=== PATIENT | male | born 1955 | race Caucasian/White ===

== ENCOUNTER 2022-01-16 17:28 | Inpatient (IN) | payer MEDICARE, MEDICAID ==
[~2022-01-16] VITALS: Ht 167.6 cm; Wt 63.0 kg
[2022-01-16 21:20] LABS: BASOPHILS % 0.4 % (0.0-2.0); HEMATOCRIT. 21.5 % (42.0-52.0); HEMOGLOBIN. 7.3 g/dL (14.0-18.0); LYMPHOCYTES % 22.5 % (20.0-50.0); MEAN CORPUSCULAR VOLUME 73.4 fL (80.0-94.0); MEAN PLATELET VOLUME 6.4 fl (7.4-10.4); MONOCYTES % 6.5 % (2.0-8.0); NEUTROPHILS % 64.6 % (40.0-76.0); PLATELET 308 x1000/uL (130-400); RED BLOOD CELL COUNT 2.92 mill/uL (4.7-6.1)
[2022-01-16 21:28] LABS: CHLORIDE 103 mEq/L (98-107)
[2022-01-16 21:37] LABS: ETHANOL BLOOD < 10 mg/dL
[2022-01-16 21:42] LABS: CREATINE KINASE 19 IU/L (39-308)
[2022-01-16] MEDS ORDERED: VANCOMYCIN 1G PREMIX 200 ML IV SCH (21:45)
[2022-01-16] MEDS ORDERED: PIPERACILLIN/TAZOBACTAM 3.375GM/50ML PREMIX IV ONE (21:45)
[2022-01-16] MEDS ORDERED: PIPERACILLIN/TAZ 3.375G PREMIX 50 ML IV NR (21:47)
[2022-01-17] MEDS ORDERED: ONDANSETRON HCL 4MG/2ML INJ IV PRN
[2022-01-17] MEDS ORDERED: ACETAMINOPHEN 325MG TABLET PO PRN
[2022-01-17] MEDS ORDERED: HYDROCODONE/ACETAMINOPHEN 5/325MG TABLET PO PRN
[2022-01-17] MEDS ORDERED: MAGNESIUM/ALUMINUM HYDROXIDE/SIMETHICONE 30ML UDC PO PRN
[2022-01-17] MEDS ORDERED: GUAIFENESIN 200MG/10ML SUGAR FREE UDC PO PRN
[2022-01-17] MEDS ORDERED: NALOXONE HCL 0.4 MG/ML 1ML VIAL IV PRN (00:15)
[2022-01-17] MEDS ORDERED: VANCOMYCIN 1G PREMIX 200 ML IV SCH (01:00)
[2022-01-17] MEDS ORDERED: VANCOMYCIN 1GM PMX (XELLIA) 200 ML IV SCH (01:00)
[2022-01-17] MEDS ORDERED: CEFEPIME 1,000 MG in DEXTROSE 5% WATER 50 ML IV SCH (02:00)
[2022-01-17 02:30] VITALS: BP 103/70
[2022-01-17] MEDS ORDERED: FERR325T6 MT (05:35)
[2022-01-17] MEDS ORDERED: OMEP20CA14 MT (05:35)
[2022-01-17] MEDS ORDERED: ASPI-1497 MT (05:35)
[2022-01-17] MEDS ORDERED: ATOR40TA70 MT (05:35)
[2022-01-17] MEDS ORDERED: GABA-532 PO (05:35)
[2022-01-17] MEDS ORDERED: FLUD0.1T MT (05:35)
[2022-01-17 06:48] LABS: CANNABINOID URINE SCREEN NEGATIVE (NEGATIVE); OPIATES URINE SCREEN NEGATIVE (NEGATIVE)
[2022-01-17 06:49] LABS: *AMPHETAMINES SCREEN URINE NEGATIVE (NEGATIVE); *BARBITURATES SCREEN URINE NEGATIVE (NEGATIVE); *COCAINE SCREEN URINE NEGATIVE (NEGATIVE); PHENCYCLIDINE URINE SCREEN NEGATIVE (NEGATIVE)
[2022-01-17 06:52] LABS: *BENZODIAZEPINES SCREEN URINE NEGATIVE (NEGATIVE)
[2022-01-17 06:53] LABS: METHADONE URINE SCREEN NEGATIVE (NEGATIVE)
[2022-01-17 06:54] LABS: CLARITY URINE CLEAR (CLEAR); COLOR URINE YELLOW (YELLOW); KETONES URINE NEGATIVE (NEGATIVE); LEUKOCYTE ESTERASE URINE NEGATIVE (NEGATIVE); NITRITE URINE NEGATIVE (NEGATIVE); OCCULT BLOOD URINE TRACE (NEGATIVE); PH URINE 6.5 (4.5-8.0); PROTEIN URINE 2+ (NEGATIVE); UROBILINOGEN URINE 0.2 E.U./dL (0.2-1.0)
[2022-01-17 08:00] VITALS: BP 154/67
[2022-01-17] MEDS ORDERED: VANCOMYCIN 750MG PMX (XELLIA) 150 ML IV SCH (09:00)
[2022-01-17] MEDS ORDERED: POTASSIUM CHLORIDE 20MEQ TABLET SR PO NR (09:30)
[2022-01-17] MEDS: ENOXAPARIN 40MG/0.4ML SYR SUBCUT SCH (09:45)
[2022-01-17] MEDS: VANCOMYCIN 750MG PMX (XELLIA) 150 ML IV SCH ×2 (09:45→21:34)
[2022-01-17 10:56] LABS: BASOPHILS % 0.4 % (0.0-2.0); EOSINOPHILS % 9.6 % (0.0-5.0); LYMPHOCYTES % 17.8 % (20.0-50.0); MEAN CORPUSCULAR HEMOGLOBIN 24.5 pg (28.0-32.0); MEAN CORPUSCULAR VOLUME 73.2 fL (80.0-94.0); MEAN PLATELET VOLUME 6.5 fl (7.4-10.4); MONOCYTES % 6.4 % (2.0-8.0); NEUTROPHILS % 65.8 % (40.0-76.0); PLATELET 321 x1000/uL (130-400); RED BLOOD CELL COUNT 3.51 mill/uL (4.7-6.1); RED CELL DISTRIBUTION WIDTH 16.8 % (11.6-14.6)
[2022-01-17 11:00] LABS: CHLORIDE 102 mEq/L (98-107)
[2022-01-17 11:05] LABS: HEMATOCRIT. 25.7 % (42.0-52.0); HEMOGLOBIN. 8.6 g/dL (14.0-18.0); PHOSPHORUS 3.7 mg/dL (2.5-4.9)
[2022-01-17 12:00] VITALS: BP 168/81
[2022-01-17] MEDS: ASPIRIN 81MG EC TABLET PO SCH (15:42)
[2022-01-17] MEDS: CEFEPIME 1,000 MG in DEXTROSE 5% WATER 50 ML IV SCH (15:42)
[2022-01-17] MEDS: FERROUS SULFATE 325MG TABLET PO SCH (15:43)
[2022-01-17] MEDS: OMEPRAZOLE 20MG CAPSULE EXTENDED RELEASE PO SCH (15:43)
[2022-01-17 16:00] VITALS: BP 140/63
[2022-01-17] MEDS: GABAPENTIN 300MG CAPSULE PO SCH (17:23)
[2022-01-17] MEDS: FLUDROCORTISONE ACETATE 0.1MG TABLET PO SCH (17:23)
[2022-01-17 20:00] VITALS: BP 121/54
[2022-01-17] MEDS: ACETAMINOPHEN 325MG TABLET PO PRN (21:35)
[2022-01-17] MEDS: ATORVASTATIN CALCIUM 40MG TABLET PO SCH (21:36)
[2022-01-17] MEDS ORDERED: DEXTROSE 50% WATER 50ML SYRINGE IV PRN (21:45)
[2022-01-18] VITALS: BP 119/57
[2022-01-18 04:00] VITALS: BP 138/64
[2022-01-18] MEDS: CEFEPIME 1,000 MG in DEXTROSE 5% WATER 50 ML IV SCH ×2 (04:11→15:39)
[2022-01-18 05:44] LABS: HEMOGLOBIN. 7.6 g/dL (14.0-18.0)
[2022-01-18 05:45] LABS: MEAN CORPUSCULAR HEMOGLOBIN 24.7 pg (28.0-32.0)
[2022-01-18 05:48] LABS: HEMATOCRIT. 22.5 % (42.0-52.0); MEAN CORPUSCULAR VOLUME 72.8 fL (80.0-94.0); MEAN PLATELET VOLUME 6.6 fl (7.4-10.4); PLATELET 299 x1000/uL (130-400); RED CELL DISTRIBUTION WIDTH 16.9 % (11.6-14.6)
[2022-01-18 05:57] LABS: CHLORIDE 108 mEq/L (98-107)
[2022-01-18] MEDS: OMEPRAZOLE 20MG CAPSULE EXTENDED RELEASE PO SCH (06:17)
[2022-01-18] MEDS: INSULIN LISPRO 100 UNITS/ML SUBCUT SCH ×4 (06:39→20:44)
[2022-01-18] MEDS: BLOOD SUGAR DIAGNOSTIC STRIP TEST SCH ×4 (06:39→20:44)
[2022-01-18 08:00] VITALS: BP 131/65
[2022-01-18] MEDS: GABAPENTIN 300MG CAPSULE PO SCH ×3 (10:23→18:43)
[2022-01-18] MEDS: FLUDROCORTISONE ACETATE 0.1MG TABLET PO SCH ×2 (10:23→18:43)
[2022-01-18] MEDS: ASPIRIN 81MG EC TABLET PO SCH (10:23)
[2022-01-18] MEDS: VANCOMYCIN 750MG PMX (XELLIA) 150 ML IV SCH (10:23)
[2022-01-18] MEDS: ENOXAPARIN 40MG/0.4ML SYR SUBCUT SCH (10:24)
[2022-01-18 12:00] VITALS: BP 132/67
[2022-01-18 13:59] LABS: PLATELET ESTIMATE NORMAL
[2022-01-18 16:00] VITALS: BP 138/69
[2022-01-18 20:00] VITALS: BP 152/107
[2022-01-18] MEDS: ATORVASTATIN CALCIUM 40MG TABLET PO SCH (20:44)
[2022-01-19] VITALS: BP 150/66
[2022-01-19] MEDS: VANCOMYCIN 1,000 MG in DEXT 5% WATER 250 ML IV SCH ×2 (00:36→18:32)
[2022-01-19 04:00] VITALS: BP 124/53
[2022-01-19] MEDS: CEFEPIME 1,000 MG in DEXTROSE 5% WATER 50 ML IV SCH ×2 (05:39→18:32)
[2022-01-19] MEDS: OMEPRAZOLE 20MG CAPSULE EXTENDED RELEASE PO SCH (05:39)
[2022-01-19] MEDS: BLOOD SUGAR DIAGNOSTIC STRIP TEST SCH ×4 (06:03→21:06)
[2022-01-19] MEDS: INSULIN LISPRO 100 UNITS/ML SUBCUT SCH ×4 (06:03→21:12)
[2022-01-19 06:28] LABS: HEMATOCRIT. 21.8 % (42.0-52.0); HEMOGLOBIN. 7.5 g/dL (14.0-18.0); MEAN CORPUSCULAR HEMOGLOBIN 25.1 pg (28.0-32.0); MEAN CORPUSCULAR VOLUME 72.6 fL (80.0-94.0); MEAN PLATELET VOLUME 6.6 fl (7.4-10.4); PLATELET 304 x1000/uL (130-400); RED CELL DISTRIBUTION WIDTH 17.1 % (11.6-14.6)
[2022-01-19 06:45] LABS: CHLORIDE 108 mEq/L (98-107)
[2022-01-19 08:00] VITALS: BP 122/55
[2022-01-19] MEDS ORDERED: POTASSIUM CHLORIDE 20MEQ TABLET SR PO NR (08:00)
[2022-01-19] MEDS: ASPIRIN 81MG EC TABLET PO SCH (08:50)
[2022-01-19] MEDS: FLUDROCORTISONE ACETATE 0.1MG TABLET PO SCH ×2 (08:50→18:32)
[2022-01-19] MEDS: ENOXAPARIN 40MG/0.4ML SYR SUBCUT SCH (08:50)
[2022-01-19] MEDS: GABAPENTIN 300MG CAPSULE PO SCH ×3 (08:51→18:33)
[2022-01-19 12:00] VITALS: BP 144/60
[2022-01-19 16:00] VITALS: BP 130/54
[2022-01-19 16:50] LABS: PLATELET ESTIMATE NORMAL
[2022-01-19 19:43] VITALS: BP 146/55
[2022-01-19] MEDS: ATORVASTATIN CALCIUM 40MG TABLET PO SCH (21:09)
[2022-01-20 00:20] VITALS: BP 137/53
[2022-01-20 04:00] VITALS: BP 152/62
[2022-01-20] MEDS: CEFEPIME 1,000 MG in DEXTROSE 5% WATER 50 ML IV SCH ×2 (04:07→16:53)
[2022-01-20] MEDS: OMEPRAZOLE 20MG CAPSULE EXTENDED RELEASE PO SCH (06:16)
[2022-01-20] MEDS: BLOOD SUGAR DIAGNOSTIC STRIP TEST SCH ×4 (06:24→21:44)
[2022-01-20 06:25] LABS: HEMATOCRIT. 25.9 % (42.0-52.0); HEMOGLOBIN. 8.6 g/dL (14.0-18.0); MEAN CORPUSCULAR HEMOGLOBIN 24.4 pg (28.0-32.0); MEAN CORPUSCULAR VOLUME 73.1 fL (80.0-94.0); MEAN PLATELET VOLUME 6.5 fl (7.4-10.4); PLATELET 326 x1000/uL (130-400); RED BLOOD CELL COUNT 3.54 mill/uL (4.7-6.1); RED CELL DISTRIBUTION WIDTH 16.8 % (11.6-14.6)
[2022-01-20 07:19] LABS: CHLORIDE 109 mEq/L (98-107)
[2022-01-20 07:26] LABS: PHOSPHORUS 3.2 mg/dL (2.5-4.9)
[2022-01-20 08:00] VITALS: BP 109/64
[2022-01-20] MEDS: ENOXAPARIN 40MG/0.4ML SYR SUBCUT SCH (09:38)
[2022-01-20] MEDS: GABAPENTIN 300MG CAPSULE PO SCH ×3 (09:38→16:54)
[2022-01-20] MEDS: FLUDROCORTISONE ACETATE 0.1MG TABLET PO SCH ×2 (09:38→16:54)
[2022-01-20] MEDS: ASPIRIN 81MG EC TABLET PO SCH (09:38)
[2022-01-20] MEDS: FERROUS SULFATE 325MG TABLET PO SCH (09:38)
[2022-01-20 12:00] VITALS: BP 128/55
[2022-01-20] MEDS: VANCOMYCIN 1,000 MG in DEXT 5% WATER 250 ML IV SCH (12:40)
[2022-01-20] MEDS: INSULIN LISPRO 100 UNITS/ML SUBCUT SCH ×3 (12:42→21:00)
[2022-01-20 16:00] VITALS: BP 125/59
[2022-01-20 18:44] LABS: PLATELET ESTIMATE NORMAL
[2022-01-20 20:00] VITALS: BP 132/59
[2022-01-20] MEDS: ATORVASTATIN CALCIUM 40MG TABLET PO SCH (21:42)
[2022-01-21] VITALS: BP 155/73
[2022-01-21 04:00] VITALS: BP 154/64
[2022-01-21] MEDS: CEFEPIME 1,000 MG in DEXTROSE 5% WATER 50 ML IV SCH ×2 (04:14→15:38)
[2022-01-21] MEDS: BLOOD SUGAR DIAGNOSTIC STRIP TEST SCH ×4 (06:29→21:52)
[2022-01-21] MEDS: VANCOMYCIN 1,000 MG in DEXT 5% WATER 250 ML IV SCH (06:34)
[2022-01-21 07:36] LABS: CHLORIDE 111 mEq/L (98-107)
[2022-01-21] MEDS: INSULIN LISPRO 100 UNITS/ML SUBCUT SCH ×4 (07:46→21:55)
[2022-01-21 07:53] LABS: VANCOMYCIN TROUGH 19.2 ug/mL (5.0-10.0)
[2022-01-21 08:00] VITALS: BP 132/51
[2022-01-21] MEDS: FAMOTIDINE 20MG TABLET PO SCH ×2 (08:45→21:52)
[2022-01-21] MEDS: ENOXAPARIN 40MG/0.4ML SYR SUBCUT SCH (08:45)
[2022-01-21] MEDS: FLUDROCORTISONE ACETATE 0.1MG TABLET PO SCH ×2 (08:45→17:12)
[2022-01-21] MEDS: GABAPENTIN 300MG CAPSULE PO SCH ×3 (08:45→17:12)
[2022-01-21] MEDS: ASPIRIN 81MG EC TABLET PO SCH (08:45)
[2022-01-21] MEDS ORDERED: POTASSIUM CHLORIDE 20MEQ TABLET SR PO SCH (08:45)
[2022-01-21 12:00] VITALS: BP 144/56
[2022-01-21 16:00] VITALS: BP 141/59
[2022-01-21 20:00] VITALS: BP 155/44
[2022-01-21] MEDS: ATORVASTATIN CALCIUM 40MG TABLET PO SCH (21:52)
[2022-01-22] VITALS: BP 140/56
[2022-01-22 04:00] VITALS: BP 170/65
[2022-01-22] MEDS: CEFEPIME 1,000 MG in DEXTROSE 5% WATER 50 ML IV SCH ×2 (05:05→18:16)
[2022-01-22] MEDS: BLOOD SUGAR DIAGNOSTIC STRIP TEST SCH ×4 (05:12→21:16)
[2022-01-22] MEDS: CLONIDINE 0.1MG TABLET PO PRN (05:14)
[2022-01-22] MEDS: VANCOMYCIN 1,000 MG in DEXT 5% WATER 250 ML IV SCH (06:21)
[2022-01-22] MEDS: VANCOMYCIN 1GM PMX (XELLIA) 200 ML IV SCH (06:22)
[2022-01-22] MEDS: INSULIN LISPRO 100 UNITS/ML SUBCUT SCH ×4 (07:50→21:00)
[2022-01-22 08:20] VITALS: BP 126/52
[2022-01-22] MEDS: FERROUS SULFATE 325MG TABLET PO SCH (09:00)
[2022-01-22] MEDS: ASPIRIN 81MG EC TABLET PO SCH (09:00)
[2022-01-22] MEDS: ENOXAPARIN 40MG/0.4ML SYR SUBCUT SCH (09:00)
[2022-01-22 10:47] LABS: HEMATOCRIT. 27.1 % (42.0-52.0); MEAN CORPUSCULAR HEMOGLOBIN 24.8 pg (28.0-32.0); MEAN CORPUSCULAR VOLUME 74.6 fL (80.0-94.0); MEAN PLATELET VOLUME 6.3 fl (7.4-10.4); PLATELET 349 x1000/uL (130-400); RED BLOOD CELL COUNT 3.63 mill/uL (4.7-6.1); RED CELL DISTRIBUTION WIDTH 16.5 % (11.6-14.6)
[2022-01-22 10:54] LABS: CHLORIDE 108 mEq/L (98-107)
[2022-01-22 11:01] LABS: INR 1.1; PARTIAL THROMBOPLASTIN TIME 30.5 sec (23.4-31.0)
[2022-01-22 11:20] LABS: PLATELET ESTIMATE NORMAL
[2022-01-22] MEDS: FAMOTIDINE 20MG TABLET PO SCH ×2 (11:44→22:37)
[2022-01-22] MEDS: GABAPENTIN 300MG CAPSULE PO SCH ×3 (11:44→18:15)
[2022-01-22] MEDS: FLUDROCORTISONE ACETATE 0.1MG TABLET PO SCH ×2 (11:45→18:15)
[2022-01-22 12:00] VITALS: BP 141/51
[2022-01-22] MEDS ORDERED: EPINEPHRINE 1:1000 1 MG/ML AMP ONE (13:09)
[2022-01-22] MEDS ORDERED: LIDOCAINE HCL/EPINEPHRINE 1%-EPI 1:100,000 50 ML VIAL INFIL ONE (13:10)
[2022-01-22] MEDS ORDERED: VANCOMYCIN HCL 1 GM/VIAL ONE (13:10)
[2022-01-22] MEDS ORDERED: POLYMYXIN B SULFATE 500000 UNITS/VIAL ONE (13:10)
[2022-01-22] MEDS ORDERED: PROPOFOL 200MG/20ML VIAL IV ONE (14:24)
[2022-01-22] MEDS ORDERED: MIDAZOLAM HCL 2 MG/2 ML VIAL ONE (14:24)
[2022-01-22] MEDS ORDERED: FENTANYL CITRATE/PF 50MCG/ML 2ML VIAL ONE (14:24)
[2022-01-22] MEDS ORDERED: HYDROMORPHONE HCL/PF 2MG/ML CPJ IV PRN (14:30)
[2022-01-22] MEDS ORDERED: ONDANSETRON HCL 4MG/2ML INJ IV PRN (14:30)
[2022-01-22] MEDS ORDERED: MEPERIDINE HCL/PF 25MG/ML CPJ IV PRN (14:30)
[2022-01-22] MEDS ORDERED: LABETALOL 5MG/ML SYR 20 MG/4 ML SYRINGE IV PRN (14:30)
[2022-01-22] MEDS ORDERED: ONDANSETRON HCL 4MG/2ML INJ ONE (14:31)
[2022-01-22] MEDS ORDERED: DEXAMETHASONE 4MG/ML 1ML VIAL ONE (14:31)
[2022-01-22] MEDS ORDERED: SODIUM CHLORIDE 0.9% 10ML VIAL ONE (14:44)
[2022-01-22] MEDS ORDERED: EPHEDRINE SULFATE 50MG/ML VIAL ONE (14:44)
[2022-01-22] MEDS ORDERED: FENTANYL CITRATE/PF 50MCG/ML 2ML VIAL IV PRN (15:15)
[2022-01-22 16:50] VITALS: BP 119/85
[2022-01-22 20:00] VITALS: BP 112/52
[2022-01-22] MEDS: HYDROCODONE/ACETAMINOPHEN 5/325MG TABLET PO PRN (20:30)
[2022-01-22] MEDS: ATORVASTATIN CALCIUM 40MG TABLET PO SCH (22:37)
[2022-01-23] VITALS: BP 133/59
[2022-01-23] MEDS: HYDROCODONE/ACETAMINOPHEN 5/325MG TABLET PO PRN ×4 (00:39→18:05)
[2022-01-23] MEDS: CEFEPIME 1,000 MG in DEXTROSE 5% WATER 50 ML IV SCH ×2 (02:12→14:21)
[2022-01-23 04:00] VITALS: BP 140/56
[2022-01-23] MEDS: VANCOMYCIN 1GM PMX (XELLIA) 200 ML IV SCH (06:28)
[2022-01-23] MEDS: INSULIN LISPRO 100 UNITS/ML SUBCUT SCH ×4 (07:07→20:49)
[2022-01-23] MEDS: BLOOD SUGAR DIAGNOSTIC STRIP TEST SCH ×4 (07:07→20:49)
[2022-01-23 07:30] VITALS: BP 133/57
[2022-01-23] MEDS: GABAPENTIN 300MG CAPSULE PO SCH ×3 (10:37→17:30)
[2022-01-23] MEDS: ENOXAPARIN 40MG/0.4ML SYR SUBCUT SCH (10:37)
[2022-01-23] MEDS: FLUDROCORTISONE ACETATE 0.1MG TABLET PO SCH ×2 (10:37→17:30)
[2022-01-23] MEDS: FAMOTIDINE 20MG TABLET PO SCH ×2 (10:37→20:49)
[2022-01-23] MEDS: ASPIRIN 81MG EC TABLET PO SCH (10:38)
[2022-01-23 11:50] VITALS: BP 142/54
[2022-01-23] MEDS ORDERED: LEVO500T89 PO (12:58)
[2022-01-23 15:44] VITALS: BP 120/55
[2022-01-23 20:00] VITALS: BP 122/54
[2022-01-23] MEDS: ATORVASTATIN CALCIUM 40MG TABLET PO SCH (20:49)
[2022-01-23] MEDS: ACETAMINOPHEN 325MG TABLET PO PRN (20:49)
[2022-01-24] VITALS: BP 119/59
[2022-01-24] MEDS: HYDROCODONE/ACETAMINOPHEN 5/325MG TABLET PO PRN ×2 (00:59→21:29)
[2022-01-24] MEDS: CEFEPIME 1,000 MG in DEXTROSE 5% WATER 50 ML IV SCH ×2 (03:35→16:53)
[2022-01-24] MEDS: CLONIDINE 0.1MG TABLET PO PRN (03:39)
[2022-01-24 04:00] VITALS: BP 163/46
[2022-01-24 05:36] LABS: CHLORIDE 107 mEq/L (98-107); VANCOMYCIN TROUGH 17.2 ug/mL (5.0-10.0)
[2022-01-24] MEDS: VANCOMYCIN 1GM PMX (XELLIA) 200 ML IV SCH (05:43)
[2022-01-24 07:16] LABS: HEMATOCRIT. 24.8 % (42.0-52.0); MEAN CORPUSCULAR HEMOGLOBIN 24.1 pg (28.0-32.0); MEAN CORPUSCULAR VOLUME 74.4 fL (80.0-94.0); MEAN PLATELET VOLUME 6.5 fl (7.4-10.4); PLATELET 343 x1000/uL (130-400); RED BLOOD CELL COUNT 3.34 mill/uL (4.7-6.1); RED CELL DISTRIBUTION WIDTH 16.5 % (11.6-14.6)
[2022-01-24] MEDS: INSULIN LISPRO 100 UNITS/ML SUBCUT SCH ×4 (07:50→21:30)
[2022-01-24] MEDS: BLOOD SUGAR DIAGNOSTIC STRIP TEST SCH ×4 (07:56→20:31)
[2022-01-24 08:15] VITALS: BP 145/65
[2022-01-24] MEDS: FLUDROCORTISONE ACETATE 0.1MG TABLET PO SCH ×2 (08:17→17:26)
[2022-01-24] MEDS: FAMOTIDINE 20MG TABLET PO SCH ×2 (08:17→21:28)
[2022-01-24] MEDS: FERROUS SULFATE 325MG TABLET PO SCH (08:17)
[2022-01-24] MEDS: GABAPENTIN 300MG CAPSULE PO SCH ×3 (08:17→17:26)
[2022-01-24] MEDS: ENOXAPARIN 40MG/0.4ML SYR SUBCUT SCH (08:17)
[2022-01-24] MEDS: ASPIRIN 81MG EC TABLET PO SCH (08:17)
[2022-01-24 12:00] VITALS: BP 154/67
[2022-01-24 14:36] LABS: PLATELET ESTIMATE NORMAL
[2022-01-24 16:00] VITALS: BP 147/69
[2022-01-24 20:00] VITALS: BP 145/64
[2022-01-24] MEDS: ATORVASTATIN CALCIUM 40MG TABLET PO SCH (21:28)
[2022-01-25] VITALS: BP 138/58
[2022-01-25] MEDS: CEFEPIME 1,000 MG in DEXTROSE 5% WATER 50 ML IV SCH (03:11)
[2022-01-25 04:00] VITALS: BP 152/62
[2022-01-25] MEDS: VANCOMYCIN 1GM PMX (XELLIA) 200 ML IV SCH (05:58)
[2022-01-25] MEDS: BLOOD SUGAR DIAGNOSTIC STRIP TEST SCH (06:24)
[2022-01-25] MEDS: INSULIN LISPRO 100 UNITS/ML SUBCUT SCH (06:24)
[2022-01-25 08:09] VITALS: BP 149/65
[2022-01-25] MEDS: FLUDROCORTISONE ACETATE 0.1MG TABLET PO SCH (09:12)
[2022-01-25] MEDS: GABAPENTIN 300MG CAPSULE PO SCH (09:12)
[2022-01-25] MEDS: ENOXAPARIN 40MG/0.4ML SYR SUBCUT SCH (09:12)
[2022-01-25] MEDS: ASPIRIN 81MG EC TABLET PO SCH (09:12)
[2022-01-25] MEDS: FAMOTIDINE 20MG TABLET PO SCH (09:12)
[2022-01-25 10:08] VITALS: BP 149/65
== END 2022-01-25 11:45 | DRG 564 ==
LOC: ER 17:28 → MICUSO 23:38 → SUPCPDRO 23:51 → 6WST 01-17 02:17
PROVIDERS: ADMIT Internal Medicine; ATTEND Internal Medicine
PROC: 0S9D4ZZ Drainage of Left Knee Joint, Percutaneous Endoscopic Approach (ICD-10-PCS; principal; 2022-01-22)
PROC: 02HV33Z Insertion of Infusion Device into Superior Vena Cava, Percutaneous Approach (ICD-10-PCS; 2022-01-24)
PROC: B548ZZA Ultrasonography of Superior Vena Cava, Guidance (ICD-10-PCS; 2022-01-24)
PROC: B518ZZA Fluoroscopy of Superior Vena Cava, Guidance (ICD-10-PCS; 2022-01-24)
DX: T87.44 Infection of amputation stump, left lower extremity (principal); E43 Unspecified severe protein-calorie malnutrition; M00.9 Pyogenic arthritis, unspecified; L03.116 Cellulitis of left lower limb; M86.8X6 Other osteomyelitis, lower leg; L97.829 Non-pressure chronic ulcer of other part of left lower leg with unspecified severity; E11.51 Type 2 diabetes mellitus with diabetic peripheral angiopathy without gangrene; T87.81 Dehiscence of amputation stump; Y83.5 Amputation of limb(s) as the cause of abnormal reaction of the patient, or of later complication, without mention of misadventure at the time of the procedure; Y92.89 Other specified places as the place of occurrence of the external cause; I87.2 Venous insufficiency (chronic) (peripheral); E87.6 Hypokalemia; E11.69 Type 2 diabetes mellitus with other specified complication; Z20.822 Contact with and (suspected) exposure to COVID-19; L89.610 Pressure ulcer of right heel, unstageable; I35.0 Nonrheumatic aortic (valve) stenosis; L89.156 Pressure-induced deep tissue damage of sacral region; K21.9 Gastro-esophageal reflux disease without esophagitis; D50.9 Iron deficiency anemia, unspecified; E78.5 Hyperlipidemia, unspecified; I10 Essential (primary) hypertension; Z87.891 Personal history of nicotine dependence; Z88.5 Allergy status to narcotic agent; Z86.14 Personal history of Methicillin resistant Staphylococcus aureus infection; Z89.512 Acquired absence of left leg below knee; Z68.22 Body mass index [BMI] 22.0-22.9, adult
CPT/HCPCS: 36415; 36573; 71045; 73560; 80048; 80053; 80202; 80305; 80320; 81003; 82040; 82550; 82962; 83036; 83605; 83735; 83880; 84100; 84134; 84145; 84484; 85025; 85651; 86140; 87070; 87075; 87426; 93005; 93306; 93923; 93971; 99285; A6261; C1725; C1893; J0692; J1100; J1650; J1815; J2250; J2405; J2543; J2704; J3010; J3370; J3490; J7060; G0480

== ENCOUNTER 2022-02-27 15:34 | Inpatient (IN) | payer MEDICARE, MEDICAID ==
[~2022-02-27] VITALS: Ht 182.9 cm; Wt 67.1 kg
[~2022-02-27 15:34] MED LIST: ASPI-1497 MT; ATOR40TA70 MT; FERR325T6 MT; FLUD0.1T MT; GABA-532 PO; LEVO500T90 PO; OMEP20CA14 MT
[2022-02-27] MEDS ORDERED: PIPERACILLIN/TAZ 3.375G PREMIX 50 ML IV ONE (16:00)
[2022-02-27] MEDS ORDERED: VANCOMYCIN 1G PREMIX 200 ML IV ONE (16:00)
[2022-02-27 16:14] LABS: BASOPHILS % 0.9 % (0.0-2.0); EOSINOPHILS % 8.8 % (0.0-5.0); HEMATOCRIT. 28.3 % (42.0-52.0); HEMOGLOBIN. 9.6 g/dL (14.0-18.0); LYMPHOCYTES % 33.1 % (20.0-50.0); MEAN CORPUSCULAR HEMOGLOBIN 25.3 pg (28.0-32.0); MEAN CORPUSCULAR VOLUME 74.5 fL (80.0-94.0); MONOCYTES % 5.6 % (2.0-8.0); NEUTROPHILS % 51.6 % (40.0-76.0); RED CELL DISTRIBUTION WIDTH 18.1 % (11.6-14.6)
[2022-02-27 16:23] LABS: CHLORIDE 107 mEq/L (98-107)
[2022-02-27] MEDS ORDERED: GUAIFENESIN 200MG/10ML SUGAR FREE UDC PO PRN (16:30)
[2022-02-27] MEDS ORDERED: NA PHOS,M-B/NA PHOS,DI-BA ENEMA 118ML PR PRN (16:30)
[2022-02-27] MEDS ORDERED: HYDROCODONE/ACETAMINOPHEN 5/325MG TABLET PO PRN (16:30)
[2022-02-27] MEDS ORDERED: MAGNESIUM/ALUMINUM HYDROXIDE/SIMETHICONE 30ML UDC PO PRN (16:30)
[2022-02-27] MEDS ORDERED: ONDANSETRON HCL 4MG/2ML INJ IV PRN (16:30)
[2022-02-27] MEDS ORDERED: ACETAMINOPHEN 650MG SUPP PR PRN (16:30)
[2022-02-27] MEDS ORDERED: LORAZEPAM 0.5MG TABLET PO PRN (16:30)
[2022-02-27] MEDS ORDERED: DIPHENHYDRAMINE 50MG/ML VIAL IV PRN (16:30)
[2022-02-27] MEDS ORDERED: IPRATROPIUM/ALBUTEROL 0.5-3(2.5)MG/3ML NEB NEB PRN (16:30)
[2022-02-27] MEDS ORDERED: ACETAMINOPHEN 325MG TABLET PO PRN (16:30)
[2022-02-27] MEDS ORDERED: DOCUSATE SODIUM 100MG CAPSULE PO PRN (16:30)
[2022-02-27] MEDS ORDERED: DEXTROSE 50% WATER 50ML SYRINGE IV PRN (17:00)
[2022-02-27] MEDS: BLOOD SUGAR DIAGNOSTIC STRIP TEST SCH ×2 (17:00→21:00)
[2022-02-27] MEDS ORDERED: VANCOMYCIN 1G PREMIX 200 ML IV NR (17:00)
[2022-02-27 17:30] LABS: PLATELET ESTIMATE NORMAL
[2022-02-27 17:41] LABS: MEAN PLATELET VOLUME 6.4 fl (7.4-10.4); PLATELET 290 x1000/uL (130-400)
[2022-02-27] MEDS: INSULIN LISPRO 100 UNITS/ML SUBCUT SCH ×2 (18:20→21:00)
[2022-02-27] MEDS: CLONIDINE 0.1MG TABLET PO PRN (19:04)
[2022-02-27] MEDS ORDERED: PIPERACILLIN/TAZ 3.375G PREMIX 50 ML IV NR (19:15)
[2022-02-27 20:00] VITALS: BP 160/70
[2022-02-27] MEDS: FAMOTIDINE 20MG TABLET PO SCH (23:36)
[2022-02-28] VITALS: BP 166/71
[2022-02-28 03:15] LABS: CREATINE KINASE 34 IU/L (39-308); CREATINE KINASE MB FRACTION < 1.0 ng/mL (0.5-3.6)
[2022-02-28 04:00] VITALS: BP 149/70
[2022-02-28] MEDS ORDERED: PIPERACILLIN/TAZOBACTAM 3.375 G in DEXTROSE 5% WATER 50 ML IV SCH ×2 (04:00→06:00)
[2022-02-28 05:56] VITALS: BP 160/70
[2022-02-28] MEDS: BLOOD SUGAR DIAGNOSTIC STRIP TEST SCH ×4 (06:55→21:00)
[2022-02-28] MEDS ORDERED: NALOXONE HCL 0.4MG/ML VIAL IV PRN (07:45)
[2022-02-28] MEDS: INSULIN LISPRO 100 UNITS/ML SUBCUT SCH ×4 (07:50→21:00)
[2022-02-28 08:19] LABS: CREATINE KINASE 31 IU/L (39-308); CREATINE KINASE MB FRACTION < 1.0 ng/mL (0.5-3.6)
[2022-02-28] MEDS ORDERED: VANCOMYCIN 750MG PREMIX 150 ML IV SCH (09:00)
[2022-02-28 11:39] LABS: EOSINOPHILS % 9.8 % (0.0-5.0); HEMATOCRIT. 29.6 % (42.0-52.0); HEMOGLOBIN. 9.9 g/dL (14.0-18.0); LYMPHOCYTES % 31.1 % (20.0-50.0); MEAN CORPUSCULAR HEMOGLOBIN 25.2 pg (28.0-32.0); MEAN CORPUSCULAR VOLUME 75.6 fL (80.0-94.0); MEAN PLATELET VOLUME 6.9 fl (7.4-10.4); MONOCYTES % 7.8 % (2.0-8.0); NEUTROPHILS % 50.3 % (40.0-76.0); PLATELET 277 x1000/uL (130-400); RED BLOOD CELL COUNT 3.91 mill/uL (4.7-6.1); RED CELL DISTRIBUTION WIDTH 17.7 % (11.6-14.6)
[2022-02-28 11:44] LABS: CHLORIDE 109 mEq/L (98-107)
[2022-02-28 11:51] LABS: C REACTIVE PROTEIN QUANT 9.3 mg/L (0.0-3.0)
[2022-02-28] MEDS: VANCOMYCIN 1GM PMX (XELLIA) 200 ML IV SCH (12:16)
[2022-02-28] MEDS: CLONIDINE 0.1MG TABLET PO PRN (12:16)
[2022-02-28] MEDS ORDERED: POTASSIUM CHLORIDE 20MEQ TABLET SR PO NR (13:15)
[2022-02-28] MEDS: PIPERACILLIN/TAZOBACTAM 3.375 G in DEXTROSE 5% WATER 50 ML IV SCH (14:41)
[2022-03-01] MEDS: PIPERACILLIN/TAZOBACTAM 3.375 G in DEXTROSE 5% WATER 50 ML IV SCH ×4 (00:50→20:41)
[2022-03-01] MEDS: FAMOTIDINE 20MG TABLET PO SCH ×2 (00:50→20:41)
[2022-03-01 07:45] LABS: BASOPHILS % 0.8 % (0.0-2.0); EOSINOPHILS % 8.5 % (0.0-5.0); HEMATOCRIT. 28.7 % (42.0-52.0); HEMOGLOBIN. 9.6 g/dL (14.0-18.0); LYMPHOCYTES % 32.5 % (20.0-50.0); MEAN CORPUSCULAR HEMOGLOBIN 25.3 pg (28.0-32.0); MEAN CORPUSCULAR VOLUME 75.4 fL (80.0-94.0); MEAN PLATELET VOLUME 6.9 fl (7.4-10.4); MONOCYTES % 6.1 % (2.0-8.0); NEUTROPHILS % 52.1 % (40.0-76.0); PLATELET 270 x1000/uL (130-400)
[2022-03-01] MEDS: INSULIN LISPRO 100 UNITS/ML SUBCUT SCH ×3 (07:50→20:39)
[2022-03-01 08:00] VITALS: BP 149/63
[2022-03-01] MEDS: BLOOD SUGAR DIAGNOSTIC STRIP TEST SCH ×3 (08:10→20:38)
[2022-03-01 08:24] LABS: CHLORIDE 109 mEq/L (98-107)
[2022-03-01] MEDS: VANCOMYCIN 1GM PMX (XELLIA) 200 ML IV SCH (08:58)
[2022-03-01 10:52] LABS: CLARITY URINE CLEAR (CLEAR); COLOR URINE YELLOW (YELLOW); KETONES URINE NEGATIVE (NEGATIVE); LEUKOCYTE ESTERASE URINE NEGATIVE (NEGATIVE); NITRITE URINE NEGATIVE (NEGATIVE); OCCULT BLOOD URINE 1+ (NEGATIVE); PH URINE 6.5 (4.5-8.0); PROTEIN URINE 4+ (NEGATIVE); SPECIFIC GRAVITY URINE 1.018 (1.005-1.030)
[2022-03-01 12:00] VITALS: BP 141/70
[2022-03-01 16:00] VITALS: BP 149/74
[2022-03-01 20:00] VITALS: BP 157/66
[2022-03-02] VITALS (7 sets, daily range): BP systolic 131–179; BP diastolic 61–78
[2022-03-02] MEDS: CLONIDINE 0.1MG TABLET PO PRN ×3 (05:14→23:45)
[2022-03-02] MEDS: PIPERACILLIN/TAZOBACTAM 3.375 G in DEXTROSE 5% WATER 50 ML IV SCH ×3 (05:14→21:30)
[2022-03-02] MEDS: BLOOD SUGAR DIAGNOSTIC STRIP TEST SCH ×4 (06:27→21:24)
[2022-03-02] MEDS: INSULIN LISPRO 100 UNITS/ML SUBCUT SCH ×4 (07:50→21:00)
[2022-03-02] MEDS: VANCOMYCIN 1GM PMX (XELLIA) 200 ML IV SCH (09:50)
[2022-03-02 10:24] LABS: BASOPHILS % 0.9 % (0.0-2.0); EOSINOPHILS % 7.9 % (0.0-5.0); HEMATOCRIT. 28.7 % (42.0-52.0); HEMOGLOBIN. 9.7 g/dL (14.0-18.0); LYMPHOCYTES % 31.8 % (20.0-50.0); MEAN CORPUSCULAR HEMOGLOBIN 25.4 pg (28.0-32.0); MEAN CORPUSCULAR VOLUME 75.4 fL (80.0-94.0); MEAN PLATELET VOLUME 6.8 fl (7.4-10.4); MONOCYTES % 6.3 % (2.0-8.0); NEUTROPHILS % 53.1 % (40.0-76.0); PLATELET 274 x1000/uL (130-400); RED BLOOD CELL COUNT 3.81 mill/uL (4.7-6.1); RED CELL DISTRIBUTION WIDTH 17.7 % (11.6-14.6)
[2022-03-02 10:37] LABS: CHLORIDE 108 mEq/L (98-107)
[2022-03-02] MEDS: FAMOTIDINE 20MG TABLET PO SCH (21:30)
[2022-03-03] VITALS: BP 168/79
[2022-03-03 04:00] VITALS: BP 125/65
[2022-03-03] MEDS: PIPERACILLIN/TAZOBACTAM 3.375 G in DEXTROSE 5% WATER 50 ML IV SCH ×3 (05:45→22:00)
[2022-03-03] MEDS: BLOOD SUGAR DIAGNOSTIC STRIP TEST SCH ×4 (06:37→21:00)
[2022-03-03] MEDS: INSULIN LISPRO 100 UNITS/ML SUBCUT SCH ×4 (06:38→21:00)
[2022-03-03 07:47] LABS: CHLORIDE 109 mEq/L (98-107)
[2022-03-03 07:50] LABS: BASOPHILS % 0.9 % (0.0-2.0); EOSINOPHILS % 9.8 % (0.0-5.0); HEMATOCRIT. 26.6 % (42.0-52.0); LYMPHOCYTES % 37.4 % (20.0-50.0); MEAN CORPUSCULAR HEMOGLOBIN 25.2 pg (28.0-32.0); MEAN CORPUSCULAR VOLUME 74.1 fL (80.0-94.0); MEAN PLATELET VOLUME 6.6 fl (7.4-10.4); MONOCYTES % 6.9 % (2.0-8.0); PLATELET 262 x1000/uL (130-400); RED BLOOD CELL COUNT 3.59 mill/uL (4.7-6.1); RED CELL DISTRIBUTION WIDTH 17.6 % (11.6-14.6)
[2022-03-03 08:00] VITALS: BP 127/58
[2022-03-03] MEDS: VANCOMYCIN 1GM PMX (XELLIA) 200 ML IV SCH (09:18)
[2022-03-03 12:00] VITALS: BP_SYST 127; BP_SYST 131; BP_DIAS 58; BP_DIAS 61
[2022-03-03] MEDS ORDERED: DEXT 5%/0.45% NACL 1000ML 1,000 ML IV SCH (13:45)
[2022-03-03 16:00] VITALS: BP 163/68
[2022-03-03 20:00] VITALS: BP 122/54
[2022-03-03] MEDS: FAMOTIDINE 20MG TABLET PO SCH (22:00)
[2022-03-04] VITALS: BP 170/71
[2022-03-04 04:00] VITALS: BP 150/84
[2022-03-04] MEDS: PIPERACILLIN/TAZOBACTAM 3.375 G in DEXTROSE 5% WATER 50 ML IV SCH ×3 (05:21→21:01)
[2022-03-04] MEDS ORDERED: POLYMYXIN B SULFATE 500000 UNITS/VIAL ONE (07:17)
[2022-03-04] MEDS ORDERED: VANCOMYCIN HCL 1 GM/VIAL ONE (07:17)
[2022-03-04] MEDS ORDERED: BUPIVACAINE HCL/PF 0.25% (2.5MG/ML) 10ML ONE (07:18)
[2022-03-04] MEDS ORDERED: PROPOFOL 200MG/20ML VIAL IV ONE (07:28)
[2022-03-04] MEDS ORDERED: MIDAZOLAM HCL 2 MG/2 ML VIAL ONE (07:29)
[2022-03-04] MEDS ORDERED: FENTANYL CITRATE/PF 50MCG/ML 5ML VIAL ONE (07:30)
[2022-03-04] MEDS ORDERED: LIDOCAINE HCL 1% 50ML VIAL (10MG/ML) ONE (07:30)
[2022-03-04] MEDS: INSULIN LISPRO 100 UNITS/ML SUBCUT SCH ×4 (07:50→21:00)
[2022-03-04] MEDS ORDERED: PHENYLEPHRINE HCL 10 MG/ML 1ML (IV VIAL) IV ONE (07:59)
[2022-03-04] MEDS: BLOOD SUGAR DIAGNOSTIC STRIP TEST SCH ×4 (08:13→20:57)
[2022-03-04] MEDS ORDERED: ONDANSETRON HCL 4MG/2ML INJ IV PRN (09:00)
[2022-03-04] MEDS ORDERED: FENTANYL CITRATE/PF 50MCG/ML 2ML VIAL IV PRN (09:00)
[2022-03-04 10:36] LABS: HEMATOCRIT 29.7 % (42.0-52.0); HEMOGLOBIN 9.8 g/dL (14.0-18.0); MEAN CORPUSCULAR HEMOGLOBIN 24.9 pg (28.0-32.0); MEAN CORPUSCULAR VOLUME 75.4 fL (80.0-94.0); PLATELET 257 x1000/uL (130-400); RED BLOOD CELL COUNT 3.94 mill/uL (4.7-6.1); RED CELL DISTRIBUTION WIDTH 17.6 % (11.6-14.6)
[2022-03-04 10:38] LABS: CHLORIDE 107 mEq/L (98-107)
[2022-03-04 10:40] LABS: INR 1.1; PROTHROMBIN TIME 11.9 sec (9.6-11.0)
[2022-03-04] MEDS: VANCOMYCIN 1GM PMX (XELLIA) 200 ML IV SCH (11:53)
[2022-03-04 12:00] VITALS: BP 147/68
[2022-03-04 16:00] VITALS: BP 167/74
[2022-03-04 20:00] VITALS: BP 191/83
[2022-03-04] MEDS: CLONIDINE 0.1MG TABLET PO PRN (20:57)
[2022-03-04] MEDS: FAMOTIDINE 20MG TABLET PO SCH (20:57)
[2022-03-04] MEDS ORDERED: HYDROCODONE/ACETAMINOPHEN 5/325MG TABLET PO PRN (22:00)
[2022-03-04] MEDS ORDERED: POTASSIUM CHLORIDE 20MEQ TABLET SR PO SCH (22:00)
[2022-03-04] MEDS ORDERED: NALOXONE HCL 0.4 MG/ML 1ML VIAL IV PRN (22:00)
[2022-03-05] VITALS: BP 190/87
[2022-03-05] MEDS: HYDRALAZINE 10 MG in SODIUM CHLORIDE 0.9% 49.5 ML IV PRN (02:20)
[2022-03-05 04:00] VITALS: BP 148/65
[2022-03-05] MEDS: BLOOD SUGAR DIAGNOSTIC STRIP TEST SCH ×4 (06:46→20:50)
[2022-03-05 06:54] LABS: BASOPHILS % 0.5 % (0.0-2.0); EOSINOPHILS % 9.7 % (0.0-5.0); HEMATOCRIT. 27.6 % (42.0-52.0); HEMOGLOBIN. 9.4 g/dL (14.0-18.0); LYMPHOCYTES % 29.1 % (20.0-50.0); MEAN CORPUSCULAR HEMOGLOBIN 25.4 pg (28.0-32.0); MEAN CORPUSCULAR VOLUME 74.4 fL (80.0-94.0); MEAN PLATELET VOLUME 6.6 fl (7.4-10.4); MONOCYTES % 6.6 % (2.0-8.0); NEUTROPHILS % 54.1 % (40.0-76.0); PLATELET 262 x1000/uL (130-400); RED BLOOD CELL COUNT 3.71 mill/uL (4.7-6.1); RED CELL DISTRIBUTION WIDTH 17.5 % (11.6-14.6)
[2022-03-05 07:14] LABS: CHLORIDE 109 mEq/L (98-107)
[2022-03-05] MEDS: INSULIN LISPRO 100 UNITS/ML SUBCUT SCH ×4 (07:50→21:00)
[2022-03-05 08:00] VITALS: BP 157/70
[2022-03-05 19:57] VITALS: BP 149/74
[2022-03-05] MEDS: FAMOTIDINE 20MG TABLET PO SCH (20:49)
[2022-03-06 00:24] VITALS: BP 193/91
[2022-03-06] MEDS: HYDRALAZINE 10 MG in SODIUM CHLORIDE 0.9% 49.5 ML IV PRN (00:26)
[2022-03-06 04:14] VITALS: BP 163/78
[2022-03-06] MEDS: CLONIDINE 0.1MG TABLET PO PRN (06:20)
[2022-03-06] MEDS: BLOOD SUGAR DIAGNOSTIC STRIP TEST SCH (07:20)
[2022-03-06] MEDS: INSULIN LISPRO 100 UNITS/ML SUBCUT SCH (07:50)
[2022-03-06 08:00] VITALS: BP 132/68
[2022-03-06 08:44] VITALS: BP 132/68
== END 2022-03-06 11:35 | DRG 565 ==
LOC: ER 15:34 → 6EST 15:52 → SUPCPDRO 16:59 → ENRESERV 19:49
PROVIDERS: ADMIT Internal Medicine; ATTEND Internal Medicine
PROC: 0JBP3ZZ Excision of Left Lower Leg Subcutaneous Tissue and Fascia, Percutaneous Approach (ICD-10-PCS; principal; 2022-03-04)
DX: T87.44 Infection of amputation stump, left lower extremity (principal); M00.862 Arthritis due to other bacteria, left knee; E44.1 Mild protein-calorie malnutrition; E87.6 Hypokalemia; D64.9 Anemia, unspecified; E11.65 Type 2 diabetes mellitus with hyperglycemia; M25.462 Effusion, left knee; E11.40 Type 2 diabetes mellitus with diabetic neuropathy, unspecified; I35.0 Nonrheumatic aortic (valve) stenosis; E11.51 Type 2 diabetes mellitus with diabetic peripheral angiopathy without gangrene; K21.9 Gastro-esophageal reflux disease without esophagitis; E78.00 Pure hypercholesterolemia, unspecified; F10.21 Alcohol dependence, in remission; I10 Essential (primary) hypertension; M65.9 Synovitis and tenosynovitis, unspecified; Z22.322 Carrier or suspected carrier of Methicillin resistant Staphylococcus aureus; Z79.82 Long term (current) use of aspirin; Z79.899 Other long term (current) drug therapy; Z87.891 Personal history of nicotine dependence; Z89.512 Acquired absence of left leg below knee; Z88.8 Allergy status to other drugs, medicaments and biological substances; Z68.20 Body mass index [BMI] 20.0-20.9, adult
CPT/HCPCS: 36415; 73560; 73721; 80048; 80053; 80202; 81003; 82550; 82553; 82962; 83036; 83605; 84145; 84443; 84484; 85025; 85027; 85651; 86140; 86850; 86900; 87070; 87075; 87426; 93005; 93306; 93923; 93970; 97162; 99285; J0360; J1815; J2250; J2370; J2543; J2704; J3010; J3370; J3490; J7060

== ENCOUNTER 2022-08-06 21:02 | Emergency (ER) | payer MEDICARE, MEDICAID ==
[~2022-08-06] VITALS: Ht 180.3 cm; Wt 64.0 kg
[~2022-08-06 21:02] MED LIST changes: +LEVO-65 PO; -LEVO500T90 PO
[2022-08-07 06:25] LABS: BASOPHILS % 0.5 % (0.0-2.0); EOSINOPHILS % 5.2 % (0.0-5.0); HEMATOCRIT. 29.9 % (42.0-52.0); HEMOGLOBIN. 10.1 g/dL (14.0-18.0); LYMPHOCYTES % 33.8 % (20.0-50.0); MEAN CORPUSCULAR HEMOGLOBIN 26.7 pg (28.0-32.0); MEAN CORPUSCULAR VOLUME 79.1 fL (80.0-94.0); MEAN PLATELET VOLUME 6.7 fl (7.4-10.4); MONOCYTES % 7.6 % (2.0-8.0); NEUTROPHILS % 52.9 % (40.0-76.0); PLATELET 278 x1000/uL (130-400); RED BLOOD CELL COUNT 3.77 mill/uL (4.7-6.1); RED CELL DISTRIBUTION WIDTH 15.6 % (11.6-14.6)
[2022-08-07 06:32] LABS: CHLORIDE 113 mEq/L (98-107)
[2022-08-07 06:34] LABS: INR 1.1; PROTHROMBIN TIME 11.4 sec (9.6-11.0)
[2022-08-07 10:40] VITALS: BP 145/78
== END 2022-08-07 10:45 | disposition home or self-care (01) ==
LOC: ER 21:02
DX: R19.7 Diarrhea, unspecified (principal)
CPT/HCPCS: 36415; 80053; 82962; 85025; 86850; 86900; 99283